=== PATIENT | female | born 1960 | race Caucasian/White ===

== ENCOUNTER 2022-10-24 17:30 | Observation (INO) | payer BC ==
[2022-10-24 18:16] LABS: #Eosinphils 0.1 thou/uL (0.0-0.7); #Monocytes 0.6 thou/uL (0.11-0.59); #Neutrophils 7.7 thou/uL (1.40-6.50); %Basophils 0.2 % (0.0-1.0); %Eosinophils 0.5 % (0.0-10.0); %Lymphocytes 19.7 % (21.0-51.0); %Monocytes 5.6 % (0.0-10.0); %Neutrophils 73.7 % (42.0-75.0); Hematocrit 37.6 % (36.0-47.0); Hemoglobin 12.4 g/dL (12.0-16.0); Mean Corpuscular Hemoglobin 30.8 pg (27.0-31.0); Mean Corpuscular Volume 93.3 fl (78.0-98.0); Mean Platelet Volume 9.7 fL (7.4-10.4); Platelet Count 308 10x3/uL (130-400); RBC Distribution Width 13.2 % (11.5-14.5); Red Blood Cell (RBC) Count 4.03 mill/uL (4.20-5.40); White Blood Cell (WBC) Count 10.4 10x3/uL (4.8-10.8)
[2022-10-24 18:37] LABS: ALT (SGPT) 9 U/L (8-55); AST (SGOT) 16 U/L (5-34); Acetaminophen Less than 10 mcg/mL (10.0-30.0); Alcohol Less than 10.0 mg/dL (Less than 10); Alkaline Phosphatase 60 U/L (40-110); Anion Gap 12 mmol/L (10-20); BUN (Urea Nitrogen) 21 mg/dL (9.8-20.1); Bilirubin, Total 0.7 mg/dL (0.2-1.2); Calc. Creatinine Clearance 0 mL/min (70-130); Calcium 9.8 mg/dL (7.8-10.44); Carbon Dioxide 32 mmol/L (22-29); Chloride 95 mmol/L (98-107); Estimated GFR 58; Globulin 3.1 g/dL (2.4-3.5); Glucose 90 mg/dL (70-105); Potassium 2.7 mmol/L (3.5-5.1); Protein, Total 7.1 g/dL (6.0-8.3); Salicylate Less than 8.0 mg/dL (15.0-30.0); Sodium 136 mmol/L (136-145)
[2022-10-24 18:50] LABS: Bilirubin Negative (Negative); Blood, Urine Negative (Negative); CAUTI Indications for Culture Alt mental st,lethar; Clarity Turbid (Clear); Glucose, Urine (Dipstick) Normal (Negative); Ketone, Urine Trace mg/dL (Negative); Leukocyte 75 Leu/uL (Negative); Nitrite Negative (Negative); Protein, Urine (Dipstick) 20 mg/dL (Neg-Trace); RBC/HPF 0-3 HPF (0-3); Specific Gravity, Urine 1.011 (1.002-1.036)
[2022-10-24 18:52] LABS: Bacteria/HPF 1+ HPF (None Seen)
[2022-10-24 18:54] LABS: Amphetamine Detected (NotDetected); Barbiturates Screen Not Detected (NotDetected); Benzodiazepine Screen Detected (NotDetected); Cocaine Metabolite Screen Not Detected (NotDetected); Methadone Not Detected (NotDetected); Methamphetamine Not Detected (NotDetected); Opiate Screen Not Detected (NotDetected); Oxycodone Screen Not Detected (NotDetected); Phencyclidine (PCP) Not Detected (NotDetected); THC/Cannabinoid Screen Detected (NotDetected); Tricyclic Screen Not Detected (NotDetected); Urine Culture Reflex No No
[2022-10-24] MEDS ORDERED: Ondansetron ODT 4 MG TAB PO PRN (19:48)
[2022-10-24] MEDS ORDERED: Calcium Carbonate 500 MG ChewTAB PO PRN (19:48)
[2022-10-24] MEDS ORDERED: Senokot S 8.6-50 MG TAB PO PRN (19:48)
[2022-10-24] MEDS ORDERED: Electrolyte Replacement Protocol 1 EACH FS SCH (19:50)
[2022-10-24] MEDS ORDERED: Potassium Chloride 20 MEQ TAB ONE (19:58)
[2022-10-24] MEDS ORDERED: D5 1/2 NS w/40 mEq KCL 1,000 ML IV SCH (20:00)
[2022-10-24] MEDS ORDERED: cefTRIAXone\\ROCEPHIN 1 GM in Sodium Chloride 0.9% 100 ML IVPB SCH (20:00)
[2022-10-24] MEDS ORDERED: hydrOXYzine 25 MG TAB ONE (22:33)
[2022-10-24] MEDS ORDERED: hydrOXYzine Pamoate 25 mg Capsule ONE (22:35)
[2022-10-25 00:20] VITALS: BMI 20.8
[2022-10-25] MEDS: Famotidine 20 MG TAB PO SCH ×3 (01:13→21:08)
[2022-10-25] MEDS ORDERED: cefTRIAXone\\ROCEPHIN 1 GM in Sodium Chloride 0.9% 100 ML IVPB SCH (03:00)
[2022-10-25 05:12] LABS: Anion Gap 12 mmol/L (10-20); BUN (Urea Nitrogen) 20 mg/dL (9.8-20.1); Calc. Creatinine Clearance 67 mL/min (70-130); Calcium 9.3 mg/dL (7.8-10.44); Carbon Dioxide 30 mmol/L (22-29); Chloride 100 mmol/L (98-107); Estimated GFR 76; Glucose 115 mg/dL (70-105); Sodium 139 mmol/L (136-145)
[2022-10-25] MEDS ORDERED: Potassium Chloride 20 MEQ TAB PO SCH ×2 (08:00→12:00)
[2022-10-25 13:40] LABS: Potassium 3.7 mmol/L (3.5-5.1)
[2022-10-25] MEDS ORDERED: lamoTRIgine 25 MG TAB PO SCH (21:00)
[2022-10-25] MEDS ORDERED: Mirtazapine 15 MG TAB PO SCH (21:00)
[2022-10-25] MEDS: Lorazepam 1 MG TAB PO PRN (21:39)
[2022-10-25] MEDS: Nicotine 14 MG PATCH TD SCH (21:40)
[2022-10-26] MEDS ORDERED: Levothyroxine Sodium 25 MCG TAB PO SCH (06:00)
[2022-10-26] MEDS: Famotidine 20 MG TAB PO SCH ×2 (07:25→20:40)
[2022-10-26] MEDS: Lorazepam 1 MG TAB PO PRN ×2 (07:25→18:38)
[2022-10-26] MEDS: Acetaminophen 325 MG TAB PO PRN (09:29)
[2022-10-26] MEDS: Nicotine 14 MG PATCH TD SCH (20:39)
[2022-10-27] MEDS: Lorazepam 1 MG TAB PO PRN ×3 (06:43→23:50)
[2022-10-27] MEDS: Famotidine 20 MG TAB PO SCH ×2 (09:09→20:53)
[2022-10-27] MEDS: Acetaminophen 325 MG TAB PO PRN ×2 (14:15→21:00)
[2022-10-27] MEDS: Nicotine 14 MG PATCH TD SCH (20:53)
[2022-10-28] MEDS: Acetaminophen 325 MG TAB PO PRN ×2 (09:25→14:54)
[2022-10-28] MEDS: Famotidine 20 MG TAB PO SCH (09:26)
[2022-10-28] MEDS: Lorazepam 1 MG TAB PO PRN (09:26)
[2022-10-28 11:36] VITALS: BP 159/74; TEMP 98.4
== END 2022-10-28 16:10 ==
LOC: ERS 17:30 → INTOOBSV 19:47 → ERHOLD 19:47 → 2NO 10-25 00:08
PROVIDERS: ADMIT Student in an Organized Health Care Education/Training Program; ATTEND Hospitalist
DX: T14.91XA Suicide attempt, initial encounter (principal); T43.592A Poisoning by other antipsychotics and neuroleptics, intentional self-harm, initial encounter; T43.621A Poisoning by amphetamines, accidental (unintentional), initial encounter; T43.292A Poisoning by other antidepressants, intentional self-harm, initial encounter; F32.A Depression, unspecified; E03.9 Hypothyroidism, unspecified; I10 Essential (primary) hypertension; F19.90 Other psychoactive substance use, unspecified, uncomplicated; F41.9 Anxiety disorder, unspecified; E87.6 Hypokalemia; R82.71 Bacteriuria; Z88.0 Allergy status to penicillin; Z72.0 Tobacco use; Z79.899 Other long term (current) drug therapy
CPT/HCPCS: 36415; 80048; 80053; 80306; 80307; 81001; 84439; 84443; 85025; 93005; 96374; G0378; J0696; J3480; J3490; Q0162; Q0177